=== PATIENT | male | born 1975 | race Two or more races ===

== ENCOUNTER 2016-09-18 13:40 | Emergency (ER) | payer SELFPAY ==
[2016-09-18] MEDS ORDERED: ONDANSETRON DISINTEGRATING 4 MG TAB PO ONE (14:01)
[2016-09-18] MEDS ORDERED: IBUPROFEN 200 MG TAB PO ONE (14:01)
[2016-09-18] MEDS ORDERED: ACETAMINOPHEN 325 MG TAB PO ONE (14:17)
--- NOTE | 2016-09-18 14:47 | UCPHY ---
H & P Time Seen by Provider: 09/18/16 14:07 Patient Type: New HPI/ROS: HPI Flu symptoms. 40-year-old male by private vehicle with his girlfriend and his daughter. This patient reports 4 days of nonproductive cough, fever, muscle aches and joint aches, sore throat, nasal congestion and nausea with some vomiting, nonbilious and nonbloody today. He is currently visiting from [place]. ROS: Constitutional: No fever, no chills. No weakness. Eyes: No discharge. No changes in vision. ENT: As above. Respiratory: As above. No shortness of breath. Cardiac: No chest pain, no palpitations. Gastrointestinal: No abdominal pain, as above, no diarrhea. Genitourinary: No hematuria. No dysuria or increased frequency with urination. Musculoskeletal: No back pain. No neck pain. As above. Skin: No rashes. Neurological: No headache. No focal weakness or altered sensation. Past medical history: None. Social history: As above. Physical Exam: General Appearance: Alert, no distress. This patient is responding to questions appropriately and in full sentences. This patient appears well- hydrated and well-nourished. Eyes: Pupils equal and round no pallor or injection. No lid edema, erythema or injection. ENT, Mouth: Mucous membranes are moist. The pharyngeal tissues are unremarkable. Mild pharyngeal erythema. No asymmetry suggestive of abscess. No exudates. Respiratory: There are no retractions, lungs are clear to auscultation with good air movement bilaterally. No tachypnea. Intermittent dry cough. Cardiovascular: Regular rate and rhythm. No murmur. Gastrointestinal: Abdomen is soft and nontender, no masses, bowel sounds normal. No focal tenderness at McBurney's point. No Iglesias sign. Neurological: Motor sensory function is grossly intact. Cranial nerves are normal. Gait is normal. Skin: Warm and dry, no rashes. Musculoskeletal: Neck is supple and nontender. Mild cervical anterior lymphadenopathy. Extremities are symmetrical. All joints range without pain or impingement. Psychiatric: No agitation. No depression. Database: EKG: Imaging: Procedures: Emergency department course: Vital signs reviewed. Patient is febrile to was vital signs are normal. Patient given 4 mg of ODT Zofran followed by 1 g of Tylenol and 600 mg of ibuprofen for treatment of fever. Patient is outside the therapeutic treatment time for Tamiflu. Plan will be to prescribe Vicodin and ibuprofen for fever, muscle aches, joint aches and sore throat. Zofran for nausea. Discussed supportive care with him and girlfriend. Discussed the importance of oral hydration and rest. Follow-up reviewed. Return to Urgent Care precautions reviewed. All of their questions were answered. The patient was discharged in good condition. Differential Diagnosis: The differential diagnosis on this patient includes but is not limited to influenza, viral syndrome. Pneumonia, streptococcal pharyngitis, retropharyngeal abscess, peritonsillar abscess, tracheitis, epiglottitis, other serious bacterial infection unlikely. This represents a partial list of diagnoses considered. These considerations are based on history, physical exam , past history, reassessment and diagnostic testing. Constitutional: Initial Vital Signs Temperature (C) 39.7 C H 09/18/16 13:55 Heart Rate 87 09/18/16 13:55 Respiratory Rate 18 09/18/16 13:55 Blood Pressure 119/79 09/18/16 13:55 O2 Sat (%) 98 09/18/16 13:55 O2 Delivery Mode Room Air Allergies/Adverse Reactions: No Known Allergies Allergy (Unverified 09/18/16 13:55) Home Medications: Medication Instructions Recorded Hydrocodone/APAP 5/325 [[place] 1 - 2 tab PO Q4-6PRN PRN #7 tab 09/18/16 5/325 (*)] Ondansetron Odt [Zofran Odt 4 mg 4 mg PO Q4PRN PRN #10 tab 09/18/16 (*)] Medical Decision Making - Data Points Medications Given: Discontinued Medications Ondansetron HCl (Zofran Odt) 4 mg PO EDNOW ONE Stop: 09/18/16 14:02 Last Admin: 09/18/16 14:15 Dose: 4 mg Departure - Departure Disposition: Home, Routine, Self-Care Clinical Impression: Influenza Condition: Good Instructions: Influenza (ED) Additional Instructions: Read and follow provided instructions. Follow-up with your primary care physician in 1-2 days for re-evaluation or return to the Urgent Care for re-evaluation if her symptoms are not improving. Take medication as prescribed. Do not take additional Tylenol/acetaminophen with [place] tablets. Ibuprofen dosin mg every 6 hours with meals for the next 3 days only. [place]/Percocet dosin-2 every 4-[address] for [address] Do not drive on this medication. Return to the emergency department immediately for difficulty breathing, vomiting and inability to keep fluids down or other serious concerns. Referrals: NONE *PRIMARY CARE P,. [Primary Care Provider] - As per Instructions Prescriptions: Hydrocodone/APAP 5/325 [[place] 5/325 (*)] 1 - 2 tab PO Q4-6PRN PRN #7 tab PRN Reason: Pain, Moderate Ondansetron Odt [Zofran Odt 4 mg (*)] 4 mg PO Q4PRN PRN #10 tab PRN Reason: For Nausea & Vomiting - PQRS PQRS Measurement: Not applicable.
[2016-09-18] MEDS ORDERED: ONDANSETRON 4MG PREPACK#2 BTL TAKEHOME ONE (14:49)
[2016-09-18] MEDS ORDERED: HYDROCOD/APAP 5/325 PREPACK#6 BTL TAKEHOME ONE (14:49)
[2016-09-18 15:26] VITALS: BP 103/57; PULSE 76; RESP 16; TEMP 100.6; O2SAT 95
== END 2016-09-18 15:10 | disposition home or self-care (01) ==
LOC: CED 13:40
DX: J11.1 Influenza due to unidentified influenza virus with other respiratory manifestations (principal)
CPT/HCPCS: G0463-PO